=== PATIENT | male | born 1965 | race Caucasian/White ===

== ENCOUNTER 2025-01-03 12:44 | Emergency (ER) | payer MEDICARE, SELFPAY ==
[2025-01-03 12:46] VITALS: PULSE 78; RESP 20; BMI 35.2
[2025-01-03 12:57] VITALS: BP 132/95; PULSE 89; RESP 18; TEMP 36.4; O2SAT 89
--- NOTE | 2025-01-03 12:59 | XR_ITS ---
Examination: CT cervical spine without contrast 2-D sagittal reconstructions 2-D coronal reconstructions 3-D reconstructions. Exam date and time:January 04, 2000 2517.3 hours Indications: Ground-level fall today with into the neck, neck pain CTDI:vol (mGy) 9.17 DLP: (mGycm) 202 Technique: Multiple 2 mm axial sections of the cervical spine have been obtained. The coronal and sagittal reconstructions have been obtained. 3-D reconstructions have been obtained. Low dose protocols were performed. One or more of the following dose reduction techniques were used; automated exposure control, adjustment of the mA and/or KV according to patient size, use of iterative reconstruction technique. Findings: Axial sections demonstrate intact base of the skull. Cervical fusion C3-C6 with satisfactory alignment Advanced degenerative disc disease C6-C7 C1 exhibit satisfactory relationship to the odontoid. No acute cervical vertebral body fracture seen. Alignment posterior spinous processes satisfactory. Impression: No acute cervical fracture.
--- NOTE | 2025-01-03 12:59 | XR_ITS ---
Examination: CT brain head without contrast. 2-D sagittal coronal reconstructions Date and time of exam:04/10/2024 1523 hrs. Indications: Patient fell today with injury to the head, head pain CTDI: vol (mGy):53.8 DLP: (mGycm):1126 Technique: Multiple CT axial sections of the brain have been obtained, 5 mm slice thickness. Contrast has not been administered. 2-D sagittal, coronal reconstructions have been obtained Low dose protocols were performed. One or more of the following dose reduction techniques were used; automated exposure control, adjustment of the mA and/or KV according to patient size, use of iterative reconstruction technique. Findings: No significant ventricular enlargement. Intra-axial or extra-axial hemorrhage density is not seen. No mass effect or midline shift Basal cisterns are not remarkable. Fourth ventricle is midline. Cranial vault intact. The air in the frontal scalp soft tissue Impression: Negative for acute hemorrhage, mass effect or midline shift
--- NOTE | 2025-01-03 12:59 | XR_ITS ---
Examination: AP chest single view TECHNIQUE: AP portable semiupright chest single view Exam date and time: January 03, 2025 1325 hours Comparison January 07, 2018 INDICATIONS: Shortness of breath chest pain today FINDINGS: Minimal prominence left ventricle Suspicious for mild pneumonia left base No pulmonary edema IMPRESSION: Suspicious for mild pneumonia left base
--- NOTE | 2025-01-03 13:00 | EKG_ITS ---
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
--- NOTE | 2025-01-03 13:01 | PD.EDADULT ---
ED General RME/HPI General Chief complaint: Syncope / Near Syncope Stated complaint: SYNCOPE Time Seen by Provider: 01/03/25 12:59 Arrival date/time: 01/03/25 12:44 CC: Syncope HPI patient presents to the ER via EMS report the patient had a significant syncope event after having his foot scraped by sheet metal apprentice. Patient does not recall the event. Bystanders reported to perform CPR on him, EMS report hypertension with a normal respiratory rate and heart rate. Patient is awake alert oriented no focal deficits but is noted to have urinary incontinence with scrapes to his nose and his left forehead. Patient currently denies any physical pain. Patient states I am not sure what happened . 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 Patient states he was on a long trip to the sheet metal apprentice to get his foot scraped and may be low on fluids. Related Data Home Medications ?Medication ?Instructions ?Recorded ?Confirmed atenolol 50 mg tablet 50 mg PO DAILY ##0 01/31/10 01/01/22 gemfibrozil 600 mg tablet (Lopid) 600 mg PO BID #0 tabs 05/03/14 01/01/22 ranitidine HCl 150 mg tablet 150 mg PO QDAY #0 tabs 05/03/14 06/27/18 (Zantac) allopurinol 100 mg tablet 100 mg PO QDAY #0 tabs 09/03/16 01/01/22 (Zyloprim) hydrochlorothiazide 12.5 mg 12.5 mg PO QAM #0 caps 09/03/16 01/01/22 capsule (Microzide) hydroxyzine HCl 25 mg tablet 1 tab PO TID ##0 09/03/16 01/01/22 lisinopril 40 mg tablet 40 mg PO QDAY #0 tabs 09/03/16 01/01/22 tamsulosin 0.4 mg capsule (Flomax) 0.4 mg PO QDAY ##0 09/03/16 01/01/22 cyanocobalamin (vitamin B-12) 1,000 mcg PO QDAY 05/17/18 06/27/18 1,000 mcg tablet (Vitamin B-12) simethicone 125 mg chewable tablet 125 mg PO BID 05/17/18 01/01/22 famotidine 20 mg tablet 20 mg PO QDAY 01/01/22 01/01/22 fluconazole 200 mg tablet 200 mg PO QDAY 01/01/22 01/01/22 Previous Rx's ?Medication ?Instructions ?Recorded clindamycin HCl 300 mg capsule 300 mg PO TID #21 caps 05/02/23 ibuprofen 800 mg tablet 800 mg PO TID PRN pain #30 tabs 05/02/23 magnesium citrate 100 mg tablet 100 mg PO QDAY #10 tabs 01/03/25 Allergies Allergy/AdvReac Type Severity Reaction Status Date / Time metronidazole (From Flagyl) Allergy Severe Hives Verified 01/03/25 12:50 PLASTIC TAPE Allergy Severe Hives Uncoded 05/02/23 10:54 Review of Systems Review of Systems Narrative Review of Systems: GEN: No fever, no chills, no weight loss EYES: No discharge, no visual changes, no pain HEENT: No ear pain, no congestion, no sore throat PULM: No shortness of breath, no cough, no congestion CV: No chest pain, no dyspnea on exertion, no palpitations GI: No nausea, no vomiting, no diarrhea, no pain, no constipation : No frequency, no urgency, no dysuria MUSC/SKEL: No joint pain, no back pain SKIN: No rash PSYCH: No hallucinations, no depression HEME/LYMPH: No easy bleeding or bruising tendencies NEURO: No weakness, no headache Past Medical History Past Medical History NEUROLOGIC: Negative Neurological Disorders or Seizures CARDIAC: Positive Cardiac Disorders, Hypercholesterolemia and Hypertension; Negative Coronary Artery Disease or Congestive Heart Failure RESPIRATORY: Negative Chronic Obstructive Pulmonary Disease (COPD) GASTROINTESTINAL: Positive Gastrointestinal Disorders (stoma 2002), Gastrointestinal Bleed (since 1992), Colitis (for 10 yrs) and Ulcerative Colitis (Dx 1992); Negative Crohn's Disease GENITOURINARY: Positive Genitourinary Disorders, Renal Disease (ckd stage 3, Dr Silva) and Kidney Stones (one is still there but hasn't move) MUSCULOSKELETAL: Positive Musculoskeletal Disorders, Osteoporosis and Degenerative Disk Disease ENT: Negative Cataracts ENDOCRINE: Negative Endocrine Disorders, Diabetes Mellitus Type 1 or Diabetes Mellitus Type 2 HEMATOLOGIC: Positive Blood Disorders and Anemia (in the last 6 months) OTHER HISTORY: Negative Autoimmune Disease, Blood Transfusions, Blood Transfusion Reaction, Anesthesia Reactions or Cancer Family History FAMILY HISTORY: Positive Family Cardiac Disorders (mother-triple bypass,dad-heart dse) Surgical History SURGICAL: Positive Abdominal Surgery (ileostomy right lower quad of abd) and Bowel Surgery (small intestines 13 ft left inside, large intestines removed-2002); Negative Joint Replacement Social History SMOKING STATUS: Never smoker SECOND HAND EXPOSURE: No ED Exam Narrative Physical exam: [General: Appears not in any acute distress Head normocephalic HEENT: Eyes: Pupils are PERRLA EOMs are intact mouth pink dry membranes uvula is midline nose disfigured secondary to an old fracture, small amount of blood crusting from both nares but no active epistaxis. No rhinorrhea. Ears no bleeding malformation. All other subsystems of HEENT are within acceptable limits Neck is supple nontender Chest equal chest rise nontender to palpation Respiratory: Clear to auscultation no wheezes crackles or rubs CV: Rate rhythm is regular no murmurs rubs or clicks Abdomen is soft nontender no masses positive bowel sounds all 4 quadrants Back: No CVA tenderness no spinous process tenderness from cervical spine thoracic and lumbar spine Skin: Partial-thickness abrasion to the left forehead, to the base of the nose. Otherwise skin is intact no petechiae rash induration ulceration or crepitus Extremities: Moving all extremity against resistance cap refill less than 2 seconds neurosensory intact Neuro: Awake alert oriented x3 Glascow coma 15 no focal deficits] Course Quality Measures none Orders Category Date Time Status EKG (ED ONLY) *Do not use* NOW Care 01/03/25 13:[address] cervical spine wo con Stat Exams 01/03/25 12:[address] head/brain wo con Stat Exams 01/03/25 12:59 Completed EKG (ED Only) Stat Exams 01/03/25 13:00 Draft XR chest 1V Stat Exams 01/03/25 12:59 Completed B-Type Natriuretic Peptide Stat Lab 01/03/25 13:22 Completed CBC Stat Lab 01/03/25 13:22 Completed Comprehensive Metabolic Panel Stat Lab 01/03/25 13:22 Completed Creatine Kinase Stat Lab 01/03/25 13:22 Completed Drug Screen,Urine Stat Lab 01/03/25 13:00 Ordered LDH (Lactate Dehydrogenase) Stat Lab 01/03/25 13:22 Completed Magnesium Stat Lab 01/03/25 13:22 Completed Partial Thromboplastin Time Stat Lab 01/03/25 13:22 Completed Prothrombin Time with INR Stat Lab 01/03/25 13:22 Completed Troponin I Stat Lab 01/03/25 13:22 Completed Urinalysis Stat Lab 01/03/25 13:00 Ordered Aspirin Chew Med 01/03/25 13:19 Discontinued 324 mg PO X1 ONE Magnesium Sulfate 2 GM Ivpb [Magnesium Sulfate Ivpb] Med 01/03/25 14:12 Discontinued 2 gm in 50 ml IV X1 Sodium Chloride 0.9% 1000 ml [Ns] 1,000 ml Med 01/03/25 13:09 Active IV 200 mls/hr Sodium Chloride 0.9% 1000 ml [Ns] 1,000 ml Med 01/03/25 13:09 Discontinued IV 999 mls/hr Vital Signs Vital signs: Vital Signs Temperature 97.6 F 01/03/25 12:57 Pulse Rate 89 01/03/25 12:57 Respiratory Rate 18 01/03/25 12:57 Blood Pressure 132/95 H 01/03/25 12:57 Pulse Oximetry (%) 89 L 01/03/25 12:57 Oxygen Delivery Method Room Air 01/03/25 12:57 Discharge Plan Plan Patient Disposition: HOME (Self Care) Patient condition on transfer: Stable Prescriptions/Referrals Prescriptions/Med Rec: New magnesium citrate 100 mg tablet 100 mg PO QDAY Qty: 10 0RF No Action atenolol 50 MG tablet 50 mg PO DAILY Qty: 0 gemfibrozil [Lopid] 600 MG tablet 600 mg PO BID Qty: 0 ranitidine HCl [Zantac] 150 MG tablet 150 mg PO QDAY Qty: 0 allopurinol [Zyloprim] 100 MG tablet 100 mg PO QDAY Qty: 0 tamsulosin [Flomax] 0.4 MG capsule,extended release 24hr 0.4 mg PO QDAY Qty: 0 hydrochlorothiazide [Microzide] 12.5 MG capsule 12.5 mg PO QAM Qty: 0 hydroxyzine HCl 25 MG tablet 1 tab PO TID Qty: 0 lisinopril 40 MG tablet 40 mg PO QDAY Qty: 0 cyanocobalamin (vitamin B-12) [Vitamin B-12] 1,000 mcg Tablet 1,000 mcg PO QDAY simethicone 125 mg Tablet,Chewable 125 mg PO BID fluconazole 200 mg Tablet 200 mg PO QDAY famotidine 20 mg Tablet 20 mg PO QDAY clindamycin HCl 300 mg capsule 300 mg PO TID Qty: 21 0RF ibuprofen 800 mg tablet 800 mg PO TID PRN (Reason: pain) Qty: 30 0RF Referrals: Peter Boyer MD [Primary Care Provider] - In 1 week Problem List Clinical Impression: Syncope, Dehydration, Wasting syndrome, Hypomagnesemia Patient/Caregiver Discharge Instructions Education Materials: Dehydration, ED Dehydration (Adult), ED Fainting, Uncertain Cause Print Language: Maldivian Stand Alone Forms: Lizeth Award Info., Patient Portal Info Letter, Work/School Release PA/EMOTIONAL SUPPORT TEACHER Supervising Physician PA/EMOTIONAL SUPPORT TEACHER Supervising Physician: Ronnie Roland ENJose MDM Patient Acuity High Acuity (complete MDM) Clinical Information Provided by: patient and EMS Other: Past medical history includes hypertension gout Medical Records reviewed [facility] and EMS Labs/Rad/Tests considered, not ordered Describe: CBC shows no acute leukocytosis anemia thrombocytopenia Coags showed a PTT of 20.0. Chemistry showed chloride of 108 gap of 5 creatinine of 2.1 note this is slightly worse than the majority of his blood work but not the worst it has been in the past. Glucose of 170 magnesium 1.2 LDH at [address] head and C-spine is thoroughly read by radiology as negative for any finding is disc determined by me and read by radiology. EKG EKG Interpretation(s): EKG performed at 1313 shows ventricular rate of 87 OR interval 208 QRS of 9 0 QTc of 456 this is sinus rhythm right axis deviation ST segment depression in V1 V2 V3. When compared to an old EKG of January 07, 2018 these are significant changes. This is an abnormal EKG. Imaging Imaging Interpretation(s): Chest x-ray is read as a possible pneumonia in the left base however the patient has no respiratory symptoms including fever cough shortness of breath leukocytosis. Medication Administration(s) Medication Administration History Sodium Chloride (Ns) 1,000 mls @ 200 mls/hr IV .Q5H LATOYA Stop: 02/02/25 13:08 Last Admin: 01/03/25 14:34 Dose: 200 mls/hr Documented By: SERA Discontinued Medications Aspirin (Aspirin 81 Mg Chew) 324 mg PO X1 ONE Stop: 01/03/25 13:20 Last Admin: 01/03/25 13:28 Dose: 324 mg Documented By: MAXINE Sodium Chloride (Ns) 1,000 mls @ 999 mls/hr IV .Q1H1M ONE Stop: 01/03/25 14:09 Last Infusion: 01/03/25 14:57 Dose: Infused Documented By: Admin: 01/03/25 13:19 Dose: 999 mls/hr Documented By: SERA Magnesium Sulfate (Magnesium Sulfate Ivpb) 2 gm in 50 mls @ 25 mls/hr IV X1 ONE Stop: 01/03/25 16:11 Last Infusion: 01/03/25 17:04 Dose: Infused Documented By: Admin: 01/03/25 14:34 Dose: 25 mls/hr Documented By: SERA The 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 At this time patient is advised as it heats up to give himself more fluid and be cautious with being outdoors. Patient states he has a follow-up appointment with his utility bill collection clerk in 4 days. Him comfortable discharging this patient home as he has had no deterioration in neurologic status throughout his visit the emergency room no episodes of syncope. Diagnosis Differential Diagnosis ED Complaint MDM: Syncope electrolyte imbalances renal impairment
[2025-01-03] MEDS: SODIUM CHLORIDE 0.9% 1000 ML 1,000 ML 999 ML IV (13:19)
[2025-01-03] MEDS: ASPIRIN 81 MG CHEW 324 MG PO (13:28)
[2025-01-03 13:48] LABS: Basophils % (Auto) 1 % (0-2.5); Eosinophils # (Auto) 0.1 Thou/mm3 (0.0-0.5); Eosinophils % (Auto) 2 % (0-10); Hematocrit 41.3 % (41.0-53.0); Hemoglobin 14.8 g/dL (13.5-16.0); Immature Granulocytes % (Auto) 0 % (0-0); Immature Granulocytes Auto 0.02 Thou/mm3 (0.00-0.00); Lymphocytes # (Auto) 0.8 Thou/mm3 (1.0-4.8); Lymphocytes % (Auto) 11 % (10-50); Mean Corpuscular HGB Conc 35.8 g/dl (31.0-37.0); Mean Corpuscular Hemoglobin 31.5 pg (25.0-35.0); Mean Corpuscular Volume 88 fL (80-100); Monocytes # (Auto) 0.5 Thou/mm3 (0.0-0.8); Monocytes % (Auto) 6 % (0-12); Neutrophils # (Auto) 6.1 Thou/mm3 (1.8-7.7); Neutrophils % (Auto) 81 % (37-80); Nucleated Red Blood Cell % 0 /100 WBC (0); Platelet Count 158 Thou/mm3 (140-440); RDW Standard Deviation 43.6 fL (35.1-43.9); White Blood Count 7.5 Thou/mm3 (3.8-10.6)
[2025-01-03 14:04] LABS: Alanine Aminotransferase 15 U/L (10-49); Albumin, Serum 3.9 gm/dL (3.4-4.8); Albumin/Globulin Ratio 1.9 (1.2-2.2); Alkaline Phosphatase 68 U/L (46-116); Anion Gap 5 (7-16); Aspartate Amino Transferase 23 U/L (0-34); BUN/Creatinine Ratio 9 Ratio (12-20); Bilirubin,Total 0.6 mg/dL (0.3-1.2); Blood Urea Nitrogen 19 mg/dL (9-23); Calcium 8.7 mg/dL (8.3-10.6); Calcium (Corrected) 8.8 mg/dL (8.5-10.1); Carbon Dioxide 28.6 mMol/L (20.0-31.0); Chloride 108 mMol/L (98-107); Creatine Kinase 82 U/L (34-171); Creatinine (Component) 2.1 mg/dL (0.6-1.3); Estimated Creatinine Clearance 32.7 mL/min (>60); Globulin 2.1 gm/dL (2.3-3.5); Glucose 170 mg/dL (74-106); LDH (Lactate Dehydrogenase) 302 U/L (120-246); Magnesium 1.2 mg/dL (1.6-2.6); Osmolality,Calculated 289 (275-295); Potassium 4.6 mMol/L (3.4-5.1); Sodium 142 mMol/L (136-145); Troponin I 0.023 ng/mL (0.0-0.045); eGFR 35 See Note
[2025-01-03 14:12] LABS: B-Type Natriuretic Peptide 616 pg/mL (0-100)
[2025-01-03] MEDS: SODIUM CHLORIDE 0.9% 1000 ML 1,000 ML 200 ML IV (14:34)
[2025-01-03] MEDS: Magnesium Sulfate 2 GM Ivpb 2 GM/50 ML BAG IV (14:34)
[2025-01-03 14:52] LABS: INR 1.1 (0.9-1.3); Prothrombin Time 11.6 Seconds (9.0-12.2)
[2025-01-03 16:52] VITALS: BP 121/79; PULSE 85; RESP 19; TEMP 36.1; O2SAT 99
[2025-01-03 18:16] VITALS: BP 174/127; PULSE 85
[2025-01-03] MEDS: hydrALAZINE HCL 25 MG TABLET PO (18:16)
== END 2025-01-03 18:26 | disposition home or self-care (01) ==
PROVIDERS: Registered Nurse General Practice; Emergency Provider Family Medicine; PCP Family Medicine
DX: E86.0 Dehydration (principal); E88.A Wasting disease (syndrome) due to underlying condition; E83.42 Hypomagnesemia; S00.81XA Abrasion of other part of head, initial encounter; R06.02 Shortness of breath; R07.9 Chest pain, unspecified; S09.90XA Unspecified injury of head, initial encounter; M54.2 Cervicalgia; E78.00 Pure hypercholesterolemia, unspecified; I10 Essential (primary) hypertension; R94.31 Abnormal electrocardiogram [ECG] [EKG]
CPT/HCPCS: 36415; 70450; 71045; 72125; 80053; 80307; 81001; 82550; 83615; 83735; 83880; 84484; 85025; 85610; 85730; 93005; 96361; 96365; 96366; 99284; J3475; J7030; A9270